=== PATIENT | male | born 1935 | race Caucasian/White ===

== ENCOUNTER 2017-04-19 09:09 | Inpatient (IN) | payer OTHER ==
[~2017-04-19] VITALS: Ht 180.3 cm; Wt 77.4 kg
[2017-04-19 09:49] LABS: HEMATOCRIT 41.1 % (38.0-50.0); MCH 30.6 PG (29.0-34.0); MCHC 34.8 G/DL (30.0-36.0); MCV 87.8 FL (86-99); PLATELET COUNT 245 K/uL (156-360); RBC DIS.WIDTH-CV 11.8 % (11.8-14.6); RBC DIS.WIDTH-SD 37.6 % (39-53); RED BLOOD COUNT 4.68 M/uL (4.00-5.50); WHITE BLOOD COUNT 8.6 K/uL (4.1-10.2)
[2017-04-19 09:57] LABS: PROTHROMBIN TIME 10.1 (9.2-11.2)
[2017-04-19 09:58] LABS: CHLORIDE 101 mEq/L (99-109); POTASSIUM 4.1 mEq/L (3.7-5.4); SODIUM 134 mEq/L (136-147)
[2017-04-19 10:01] LABS: ANION GAP 10 MEQ/L (2-14)
[2017-04-19 10:04] LABS: GFR ESTIMATE (CALCULATED) 36 mL/min/
[2017-04-19 10:05] LABS: UREA NITROGEN (BUN) 27 mg/dL (9-23)
[2017-04-19 10:08] LABS: GLUCOSE 434 mg/dL (70-99)
[2017-04-19 10:10] LABS: TROP-I INTERPRETATION NEGATIVE; TROPONIN-I < 0.01 ng/mL (0.0-0.30)
[2017-04-19 10:39] LABS: POINT-OF-CARE METER ID UU13113702
[2017-04-19 11:18] LABS: ADD MIUA? YES; BILIRUBIN NEGATIVE; BLOOD NEGATIVE; COLOR YELLOW ((YELLOW)); GLUCOSE (STRIP) >=500; KETONES NEGATIVE; LEUKOCYTES MODERATE; NITRITE NEGATIVE; PROTEIN (STRIP) 100; SPECIFIC GRAVITY 1.022 (1.000-1.030); UROBILINOGEN 0.2 MG/DL (0.2-1.0)
[2017-04-19 11:26] LABS: BACTERIA RARE /HPF; EPITHELIAL CELLS RARE /HPF; MUCUS TRACE /LPF; RED BLOOD CELLS 0-5 /HPF (0-5); UCUL ADDED? NO; WHITE BLOOD CELLS 0-5 /HPF (0-5)
[2017-04-19 13:13] LABS: POINT-OF-CARE METER ID UU13113702
[2017-04-19] MEDS ORDERED: TRESIBA FL100 UNIT/1 SC (14:49)
[2017-04-19] MEDS ORDERED: LEVOTHYROXINE75 MCG PO (14:50)
[2017-04-19] MEDS ORDERED: VITAMIN D31000 UNIT PO (14:51)
[2017-04-19] MEDS ORDERED: GLIMEPIRIDE2 MG PO (14:52)
[2017-04-19] MEDS ORDERED: LISINOPRIL40 MG PO (14:52)
[2017-04-19] MEDS ORDERED: LIPITOR40 MG PO (14:53)
[2017-04-19] MEDS ORDERED: ZOLOFT50 MG PO (14:53)
[2017-04-19] MEDS ORDERED: BENADRYL ALLERG25 MG PO (14:53)
[2017-04-19] MEDS ORDERED: IRON325 M1 PO (14:53)
[2017-04-19] MEDS ORDERED: DONEPEZIL HCL10 MG PO (14:53)
[2017-04-19 19:41] VITALS: BP 142/72
[2017-04-19 21:11] LABS: POINT-OF-CARE METER ID UU14188577
[2017-04-19 23:53] VITALS: BP 176/81
[2017-04-20 05:50] VITALS: BP 188/81
[2017-04-20 05:52] LABS: HEMATOCRIT 39.9 % (38.0-50.0); MCHC 34.8 G/DL (30.0-36.0); MCV 88.9 FL (86-99); MEAN PLAT.VOLUME 9.6 uM^3 (9.0-12.4); PLATELET COUNT 286 K/uL (156-360); RBC DIS.WIDTH-SD 38.8 % (39-53); RED BLOOD COUNT 4.49 M/uL (4.00-5.50)
[2017-04-20 05:54] LABS: WHITE BLOOD COUNT 12.6 K/uL (4.1-10.2)
[2017-04-20 06:09] LABS: CHLORIDE 105 mEq/L (99-109); POTASSIUM 4.2 mEq/L (3.7-5.4); SODIUM 136 mEq/L (136-147)
[2017-04-20 06:10] LABS: GLUCOSE 239 mg/dL (70-99)
[2017-04-20 06:12] LABS: ANION GAP 10 MEQ/L (2-14)
[2017-04-20 06:14] LABS: GFR ESTIMATE (CALCULATED) 48 mL/min/
[2017-04-20 06:15] LABS: UREA NITROGEN (BUN) 21 mg/dL (9-23)
[2017-04-20 08:53] VITALS: BP 169/83
[2017-04-20 13:32] VITALS: BP 157/81
[2017-04-20 13:33] VITALS: BP 154/83; BP 157/81; BP 159/78
[2017-04-20 13:35] VITALS: BP 158/76
[2017-04-20 14:44] LABS: TROP-I INTERPRETATION NEGATIVE; TROPONIN-I < 0.01 ng/mL (0.0-0.30)
[2017-04-20 18:32] LABS: TROP-I INTERPRETATION NEGATIVE; TROPONIN-I < 0.01 ng/mL (0.0-0.30)
[2017-04-20 20:00] VITALS: BP 166/78
[2017-04-21 03:46] VITALS: BP 166/78
[2017-04-21 13:38] LABS: HEMATOCRIT 41.8 % (38.0-50.0); MCH 31.5 PG (29.0-34.0); MCHC 35.4 G/DL (30.0-36.0); MCV 88.9 FL (86-99); MEAN PLAT.VOLUME 9.6 uM^3 (9.0-12.4); PLATELET COUNT 262 K/uL (156-360); RBC DIS.WIDTH-CV 12.1 % (11.8-14.6); WHITE BLOOD COUNT 10.1 K/uL (4.1-10.2)
[2017-04-21 14:00] VITALS: BP 164/76
[2017-04-21 14:06] LABS: ANION GAP 7 MEQ/L (2-14); CHLORIDE 100 MEQ/L (99-109); GFR ESTIMATE (CALCULATED) 52 mL/min/; GLUCOSE 335 mg/dL (70-99); POTASSIUM 4.2 MEQ/L (3.7-5.4); SAMPLE HEMOLYSIS CHECK 0; SAMPLE ICTERIC CHECK 0; SAMPLE LIPEMIA CHECK 0; SODIUM 131 MEQ/L (136-147); UREA NITROGEN (BUN) 23 mg/dL (9-23)
[2017-04-21 14:10] VITALS: BP 165/76
[2017-04-21 15:15] VITALS: BP 171/83
[2017-04-21 16:45] LABS: POINT-OF-CARE METER ID UU14188577
[2017-04-21 19:35] VITALS: BP 164/79
[2017-04-22] VITALS (8 sets, daily range): BP systolic 133–182; BP diastolic 68–85
[2017-04-22 06:31] LABS: POINT-OF-CARE METER ID UU14188577
[2017-04-22 06:53] LABS: HEMATOCRIT 37.9 % (38.0-50.0); MCH 30.4 PG (29.0-34.0); MCHC 34.3 G/DL (30.0-36.0); MCV 88.8 FL (86-99); MEAN PLAT.VOLUME 9.8 uM^3 (9.0-12.4); PLATELET COUNT 234 K/uL (156-360); RBC DIS.WIDTH-CV 11.9 % (11.8-14.6); RBC DIS.WIDTH-SD 38.2 % (39-53); RED BLOOD COUNT 4.27 M/uL (4.00-5.50); WHITE BLOOD COUNT 9.1 K/uL (4.1-10.2)
[2017-04-22 07:29] LABS: ANION GAP 7 MEQ/L (2-14); CHLORIDE 103 MEQ/L (99-109); POTASSIUM 4.2 MEQ/L (3.7-5.4); SAMPLE HEMOLYSIS CHECK 0; SAMPLE ICTERIC CHECK 0; SAMPLE LIPEMIA CHECK 0; SODIUM 135 MEQ/L (136-147)
[2017-04-22 07:35] LABS: GFR ESTIMATE (CALCULATED) 52 mL/min/; GLUCOSE 228 mg/dL (70-99); UREA NITROGEN (BUN) 23 mg/dL (9-23)
[2017-04-22 12:01] LABS: POINT-OF-CARE METER ID UU14188577
[2017-04-22 16:38] LABS: POINT-OF-CARE METER ID UU14149397
[2017-04-22 21:42] LABS: POINT-OF-CARE METER ID UU14188577
[2017-04-23] VITALS (10 sets, daily range): BP systolic 98–195; BP diastolic 62–93
[2017-04-23 12:06] LABS: POINT-OF-CARE METER ID UU14188577
[2017-04-23 14:56] LABS: HEMATOCRIT 39.7 % (38.0-50.0); MCH 30.8 PG (29.0-34.0); MEAN PLAT.VOLUME 9.3 uM^3 (9.0-12.4); PLATELET COUNT 243 K/uL (156-360); RBC DIS.WIDTH-CV 11.8 % (11.8-14.6); RBC DIS.WIDTH-SD 37.8 % (39-53); RED BLOOD COUNT 4.51 M/uL (4.00-5.50); WHITE BLOOD COUNT 7.9 K/uL (4.1-10.2)
[2017-04-23 15:06] LABS: CHLORIDE 101 mEq/L (99-109); POTASSIUM 4.1 mEq/L (3.7-5.4); SODIUM 134 mEq/L (136-147)
[2017-04-23 15:07] LABS: GLUCOSE 291 mg/dL (70-99)
[2017-04-23 15:09] LABS: ANION GAP 5 MEQ/L (2-14)
[2017-04-23 15:11] LABS: GFR ESTIMATE (CALCULATED) 44 mL/min/
[2017-04-23 15:12] LABS: UREA NITROGEN (BUN) 21 mg/dL (9-23)
[2017-04-23 17:33] LABS: POINT-OF-CARE METER ID UU14188577
[2017-04-24] VITALS (11 sets, daily range): BP systolic 104–188; BP diastolic 68–87
[2017-04-24 07:06] LABS: POINT-OF-CARE METER ID UU14188577
[2017-04-24 12:05] LABS: POINT-OF-CARE METER ID UU14188577
[2017-04-24 16:15] LABS: POINT-OF-CARE METER ID UU14188577
[2017-04-24 17:11] LABS: POINT-OF-CARE METER ID UU14188577
[2017-04-25 07:24] LABS: EOSINOPHIL (%) 1.3 % (0-5); EOSINOPHIL COUNT 0.1 K/uL (0-0.3); HEMATOCRIT 40.5 % (38.0-50.0); IMMATURE GRANULOCYTE (%) 0.5 % (0.0-0.7); INSTRUMENT ABS NEUTROPHIL CT 6.4 K/uL; LYMPHOCYTE COUNT 1.2 K/uL (1.0-2.8); MCH 30.7 PG (29.0-34.0); MCHC 34.6 G/DL (30.0-36.0); MCV 88.8 FL (86-99); MEAN PLAT.VOLUME 9.6 uM^3 (9.0-12.4); MONOCYTE (%) 11.7 % (3-12); NEUTROPHIL (%) 72.9 % (45-76); NEUTROPHIL COUNT 6.4 K/uL (1.8-6.4); PLATELET COUNT 287 K/uL (156-360); RBC DIS.WIDTH-CV 11.9 % (11.8-14.6); RBC DIS.WIDTH-SD 38.1 % (39-53); RED BLOOD COUNT 4.56 M/uL (4.00-5.50); WHITE BLOOD COUNT 8.7 K/uL (4.1-10.2)
[2017-04-25 07:44] LABS: ALKALINE PHOSPHATASE 96 IU/L (3-129); ANION GAP 8 MEQ/L (2-14); CHLORIDE 101 MEQ/L (99-109); GFR ESTIMATE (CALCULATED) 52 mL/min/; GLUCOSE 250 mg/dL (70-99); POTASSIUM 4.7 MEQ/L (3.7-5.4); SAMPLE HEMOLYSIS CHECK 0; SAMPLE ICTERIC CHECK 0; SAMPLE LIPEMIA CHECK 0; SODIUM 137 MEQ/L (136-147); TOTAL BILIRUBIN 0.7 MG/DL (0.0-1.0); UREA NITROGEN (BUN) 26 mg/dL (9-23)
[2017-04-25 07:56] VITALS: BP 177/84
[2017-04-25 08:05] LABS: Estimated Average Glucose 309 mg/dL (70-123); HEMOGLOBIN A1c (GLYCOHEMOGLOB) 12.4 % HGB (Below 5.7)
[2017-04-25 11:52] LABS: POINT-OF-CARE METER ID UU14188577
[2017-04-25 15:40] VITALS: BP 149/71
[2017-04-25 16:56] LABS: POINT-OF-CARE METER ID UU14188577
[2017-04-25 19:35] VITALS: BP 156/80
[2017-04-26 00:15] VITALS: BP 160/80
[2017-04-26 07:33] LABS: EOSINOPHIL (%) 3.1 % (0-5); EOSINOPHIL COUNT 0.3 K/uL (0-0.3); HEMATOCRIT 40.4 % (38.0-50.0); IMMATURE GRANULOCYTE (%) 0.2 % (0.0-0.7); LYMPHOCYTE COUNT 1.4 K/uL (1.0-2.8); MCHC 33.7 G/DL (30.0-36.0); MCV 89.2 FL (86-99); MEAN PLAT.VOLUME 9.6 uM^3 (9.0-12.4); MONOCYTE (%) 9.5 % (3-12); MONOCYTE COUNT 0.8 K/uL (0-0.8); PLATELET COUNT 294 K/uL (156-360); RBC DIS.WIDTH-CV 11.8 % (11.8-14.6); RBC DIS.WIDTH-SD 38.2 % (39-53); RED BLOOD COUNT 4.53 M/uL (4.00-5.50); WHITE BLOOD COUNT 8.5 K/uL (4.1-10.2)
[2017-04-26 07:45] VITALS: BP 182/84
[2017-04-26 08:01] LABS: ALKALINE PHOSPHATASE 95 IU/L (3-129); ANION GAP 6 MEQ/L (2-14); CHLORIDE 102 MEQ/L (99-109); GFR ESTIMATE (CALCULATED) > 59 mL/min/; GLUCOSE 171 mg/dL (70-99); POTASSIUM 4.5 MEQ/L (3.7-5.4); SAMPLE HEMOLYSIS CHECK 0; SAMPLE ICTERIC CHECK 0; SAMPLE LIPEMIA CHECK 0; SODIUM 135 MEQ/L (136-147); TOTAL BILIRUBIN 0.6 MG/DL (0.0-1.0); UREA NITROGEN (BUN) 23 mg/dL (9-23)
[2017-04-26] MEDS ORDERED: DOCUSATE SODIU100 MG PO (10:28)
[2017-04-26] MEDS ORDERED: BISACODYL5 MG PO (10:28)
[2017-04-26] MEDS ORDERED: AMLODIPINE BESY10 MG PO (10:28)
[2017-04-26] MEDS ORDERED: MILK OF MAGNESI10 ML PO (10:29)
[2017-04-26] MEDS ORDERED: POLYETHYLENE GL17 GM PO (10:29)
[2017-04-26] MEDS ORDERED: LEVEMIR100 UNIT/2 SC (10:29)
[2017-04-26] MEDS ORDERED: LIDOCAINE700 MG TD (10:29)
[2017-04-26] MEDS ORDERED: MICONAZOLE NITR30 GM TP (10:29)
[2017-04-26] MEDS ORDERED: OXYCODONE HCL5 MG PO (10:30)
== END 2017-04-26 14:24 | DRG 184 ==
LOC: EME 09:09 → EDOF 13:13 → 3EAST 13:13
PROVIDERS: Emergency Medicine; Hospitalist; Internal Medicine; Physician Assistant
DX: S22.41XA Multiple fractures of ribs, right side, initial encounter for closed fracture (principal); S32.029A Unspecified fracture of second lumbar vertebra, initial encounter for closed fracture; N17.9 Acute kidney failure, unspecified; E87.1 Hypo-osmolality and hyponatremia; N39.0 Urinary tract infection, site not specified; J98.11 Atelectasis; B35.6 Tinea cruris; W18.39XA Other fall on same level, initial encounter; W22.09XA Striking against other stationary object, initial encounter; Y93.E1 Activity, personal bathing and showering; Y92.012 Bathroom of single-family (private) house as the place of occurrence of the external cause; I12.9 Hypertensive chronic kidney disease with stage 1 through stage 4 chronic kidney disease, or unspecified chronic kidney disease; N18.3 Chronic kidney disease, stage 3 (moderate); E11.22 Type 2 diabetes mellitus with diabetic chronic kidney disease; E11.65 Type 2 diabetes mellitus with hyperglycemia; I35.0 Nonrheumatic aortic (valve) stenosis; E78.5 Hyperlipidemia, unspecified; E03.9 Hypothyroidism, unspecified; F03.90 Unspecified dementia, unspecified severity, without behavioral disturbance, psychotic disturbance, mood disturbance, and anxiety; R29.6 Repeated falls; Z66 Do not resuscitate; Z88.5 Allergy status to narcotic agent; Z86.73 Personal history of transient ischemic attack (TIA), and cerebral infarction without residual deficits
CPT/HCPCS: 70450; 71010; 71250; 72125; 72192; 74176; 80048; 80053; 81003; 82948; 83036; 84484; 85025; 85027; 85610; 87040; 87086; 93005; 93306; 93880; 94010; 97530 GP; 99281; 99284; J0696; J1170; J1650; J1815; J2405; J3010; J7030; J7050